=== PATIENT | male | born 1995 | race Hispanic/Latino ===

== ENCOUNTER 2025-01-07 16:07 | Emergency (ER) | payer OTHER, SELFPAY ==
--- OUTSIDE RECORDS SUMMARY | 2025-01-07 16:10 | XMS REPORT | Continuity of Care Document ---
Author Name Unknown Address [address] [place] [address] [address] [place] [address] [facility] Address [address] [place] [address] [address] [place] [address] Care Team Providers Care Category Specialist Name Role Phone Tana Brito M.D. Primary Care Physician Allergies, Adverse Reactions, Alerts Allergy Name Allergy Type Status Severity Reaction(s) Onset Date Inactive Date Treating Clinician Comments Source Tamiflu - Oral Propensi ty to adverse reaction to drug Active 04-30 00:00: 00 Francisco Javier Amy Domínguez Tamiflu Propensi ty to adverse reaction to drug Active 06-20 00:00: 00 Francisco Javier Amy Sang Medications Ordered Medication Name Filled Medication Name Start Date Stop Date Current Medication? Ordering Clinician Indication Dosage Frequency Signature (SIG) Comments Components Source Bromfed DM 2 mg-30 mg-10 mg/5 mL oral syrup 2023-11 0 00:00: 00 Yes 10mg/5 mL Francisco Javier Domínguez Dose Unknown 05-06 00:00: 00 Yes Francisco Javier Amy Sang Flonase Allergy Relief 50 mcg/actuati on nasal spray,suspe nsion 04-30 00:00: 00 Yes 1mcg/ac tuation Francisco Javier Domínguez Dose Unknown 04-30 00:00: 00 Yes Francisco Javier Domínguez Vitamin D2 1,250 mcg (50,000 unit) capsule 2020-11 0-12 00:00: 00 Yes 1(50,00 0 unit) Francisco Javier Reyes Sang Vital Signs Vital Name Observation Time Observation Value Comments S sam Weight Measured 2024-08-10 15:02:00 129.30 pounds Francisco Javier Amy Sang Height Measured 2024-08-10 15:02:00 63.19 inches Francisco Javier Amy Sang Body Temperature 2024-08-10 15:02:00 98.20 degrees Francisco Javier F Sang Heart Rate 2024-08-10 15:02:00 74.00 /min Donna en F Sang Respiratory Rate 2024-08-10 15:02:00 18.00 /min Francisco Javier F Sang BP Systolic 2024-08-10 15:02:00 134 mm[Hg] Step hen F Sang BP Diastolic 2024-08-10 15:02:00 83 mm[Hg] Benito phen F Sang BP Systolic 2023-03-12 14:16:00 139 mm[Hg] Step hen F Sang BP Diastolic 2023-03-12 14:16:00 94 mm[Hg] Benito phen F Sang Weight Measured 2023-03-12 14:16:00 123.60 pounds Francisco Javier F Sang Height Measured 2023-03-12 14:16:00 63.19 inches Francisco Javier F Sang Body Temperature 2023-03-12 14:16:00 99.20 degrees Francisco Javier F Sang Heart Rate 2023-03-12 14:16:00 71.00 /min Donna en F Sang Respiratory Rate 2023-03-12 14:16:00 Francisco Javier F Sang BP Systolic 2022-05-06 08:41:00 Step hen F Sang BP Diastolic 2022-05-06 08:41:00 Benito phen F Sang Weight Measured 2022-05-06 08:41:00 125.00 pounds Francisco Javier F Sang Height Measured 2022-05-06 08:41:00 63.19 inches Francisco Javier F Sang Body Temperature 2022-05-06 08:41:00 Francisco Javier F Sang Heart Rate 2022-05-06 08:41:00 Donna en F Sang Respiratory Rate 2022-05-06 08:41:00 Francisco Javier F Sang BP Systolic 2021-08-16 10:34:00 112 mm[Hg] Step hen F Sang BP Diastolic 2021-08-16 10:34:00 60 mm[Hg] Benito phen F Sang Weight Measured 2021-08-16 10:34:00 125.00 pounds Francisco Javier F Sang Height Measured 2021-08-16 10:34:00 63.19 inches Francisco Javier F Sang Body Temperature 2021-08-16 10:34:00 97.50 degrees Francisco Javier F Sang Heart Rate 2021-08-16 10:34:00 68.00 /min Donna en F Sang Respiratory Rate 2021-08-16 10:34:00 Francisco Javier Amy Domínguez BP Systolic 2021-08-15 16:02:00 103 mm[Hg] Step hen F Sang BP Diastolic 2021-08-15 16:02:00 61 mm[Hg] Ebnito phen F Sang Weight Measured 2021-08-15 16:02:00 125.60 pounds Francisco Javier F Sang Height Measured 2021-08-15 16:02:00 63.19 inches Francisco Javier F Sang Body Temperature 2021-08-15 16:02:00 98.70 degrees Francisco Javier Domínguez Heart Rate 2021-08-15 16:02:00 67.00 /min Donna en F Sang Respiratory Rate 2021-08-15 16:02:00 21.00 /min Francisco Javierdawit Domínguez BP Systolic 2021-06-20 14:35:00 130 mm[Hg] Step hen F Sang BP Diastolic 2021-06-20 14:35:00 82 mm[Hg] Benito phen F Sang Weight Measured 2021-06-20 14:35:00 126.40 pounds Francisco Javier Domínguez Height Measured 2021-06-20 14:35:00 63.19 inches Francisco Javier Domínguez Body Temperature 2021-06-20 14:35:00 98.30 degrees Francisco Javier Domínguez Heart Rate 2021-06-20 14:35:00 76.00 /min Donna en Amy Domínguez Respiratory Rate 2021-06-20 14:35:00 Francisco Javier Domínguez Encounters Start Date/Time End Date/Time Encounter Type Admission Type Attending [facility] Care Department Encounter ID Source 2024-08-11 14:05:10 2024-08-11 14:05:10 Outpatient [facility] [id number] Francisco Javier Domínguez 2024-08-10 15:00:02 2024-08-10 15:00:02 Outpatient [facility] [id number] Francisco Javier Domínguez 2024-08-10 00:00:00 2024-08-10 00:00:00 Outpatient Visit [facility] [id number] Francisco Javier Domínguez 2023-03-12 13:56:23 2023-03-12 13:56:23 Outpatient [facility] [id number] Francisco Javier Domínguez 2023-03-12 00:00:00 2023-03-12 00:00:00 Outpatient Visit [facility] [id number] Francisco Javier Domínguez Results Test Description Test Time Test Comments Results Result Co mments Source Francisco Javier DomínguezHEMOGLOBIN [id number] 00:00:00* Test Item Value Reference Range Interpretation Comme nts HEMOGLOBIN A1c (test code = 84003) 5.3 % Francisco Javier DomínguezLIPID [id number] 00:00:00* Test Item Value Reference Range Interpretation Comme nts CHOLESTEROL (test code = 2210) 157 MG/DL TRIGLYCERIDES (test code = 2232) 149 MG/DL HDL CHOLESTEROL (test code = 2220) 48 MG/DL CALC LDL CHOL (test code = 2237) 84 MG/DL RISK RATIO LDL/HDL (test cod e = 2238) 1.75 RATIO Francisco Javier DomínguezCOMPREHENSIVE METABOLIC [id number] 00:00:00* Test Item Value Reference Range Interpretation Comme nts GLUCOSE (test code = 2217) 106 MG/DL BUN (test code = 2208) 9 MG/DL CREATININE (test code = 2214) 1.03 MG/DL eGFR AMER. (test cod e = 48049) 116 ML/MIN/1.73 eGFR NON- AMER. (test code = 09858) 100 ML/MIN/1.73 CALC BUN/CREAT (test code = 2235) 9 RATIO SODIUM (test code = 2231) 138 MEQ/L POTASSIUM (test code = 2228) 3.9 MEQ/L CHLORIDE (test code = 2215) 100 MEQ/L CARBON DIOXIDE (test code = 2206) 26 MEQ/L CALCIUM (test code = 2209) 8.9 MG/DL PROTEIN, TOTAL (test code = 2229) 7.0 G/DL ALBUMIN (test code = 2201) 4.7 G/DL CALC GLOBULIN (test code = 2240) 2.3 G/DL CALC A/G RATIO (test code = 2234) 2.0 RATIO BILIRUBIN, TOTAL (test code = 2207) 0.2 MG/DL ALKALINE PHOSPHATASE (test code = 2204) 69 U/L AST (test code = 2218) 19 U/L ALT (test code = 2219) 17 U/L Francisco Javier DomínguezHIV AB/AG COMBO RFLX [id number] 00:00:00* Test Item Value Reference Range Interpretation Comme nts HIV 1/2 4TH GEN, RFLX CONF ( test code = 3514) NON-REACTIVE Francisco Javier DomínguezVITAMIN D, 25 [id number] 00:00:00* Test Item Value Reference Range Interpretation Comme nts VITAMIN D, 25 OH (test code = 4958) 15 NG/ML Francisco Javier [id number] 00:00:00* Test Item Value Reference Range Interpretation Comme nts TSH, THIRD GENERATION (test code = 2821) 0.902 UIU/ML Francisco Javier DomínguezCBC W/AUTO [id number] 00:00:00* Test Item Value Reference Range Interpretation Comme nts WBC (test code = 1001) 6.8 K/UL RBC (test code = 1002) 5.47 M/UL HEMOGLOBIN (test code = 1003) 16.5 G/DL HEMATOCRIT (test code = 1004) 48.6 % MCV (test code = 1005) 88.8 fL MCH (test code = 1006) 30.2 PG MCHC (test code = 1007) 34.0 G/DL RDW (test code = 1038) 12.9 % NEUTROPHILS (test code = 1008) 46.1 % LYMPHOCYTES (test code = 1010) 40.6 % MONOCYTES (test code = 1011) 9.7 % EOSINOPHILS (test code = 1012) 2.8 % BASOPHILS (test code = 1013) 0.7 % IMMATURE GRANULOCYTES (test code = 1036) 0.1 % NUCLEATED RBCS (test code = 1065) 0.0 /100WBC'S PLATELET COUNT (test code = 1015) 337 K/UL ABSOLUTE NEUTROPHILS (test c ode = 1066) 3.14 K/UL ABSOLUTE LYMPHOCYTES (test c ode = 1067) 2.77 K/UL ABSOLUTE MONOCYTES (test cod e = 1068) 0.66 K/UL ABSOLUTE EOSINOPHILS (test c ode = 1040) 0.19 K/UL ABSOLUTE BASOPHILS (test cod e = 1069) 0.05 K/UL ABS IMMATURE GRANULOCYTES (t est code = 1020) 0.01 K/UL ABS NUCLEATED RBCS (test cod e = 66438) 0.00 K/UL Francisco Javier DomínguezHEMOGLOBIN [id number] 00:00:00* Test Item Value Reference Range Interpretation Comme nts HEMOGLOBIN A1c (test code = 89098) 5.3 % Francisco Javier DomínguezLIPID [id number] 00:00:00* Test Item Value Reference Range Interpretation Comme nts CHOLESTEROL (test code = 2210) 157 MG/DL TRIGLYCERIDES (test code = 2232) 149 MG/DL HDL CHOLESTEROL (test code = 2220) 48 MG/DL CALC LDL CHOL (test code = 2237) 84 MG/DL RISK RATIO LDL/HDL (test cod e = 2238) 1.75 RATIO Francisco Javier DomínguezCOMPREHENSIVE METABOLIC [id number] 00:00:00* Test Item Value Reference Range Interpretation Comme nts GLUCOSE (test code = 2217) 106 MG/DL BUN (test code = 2208) 9 MG/DL CREATININE (test code = 2214) 1.03 MG/DL eGFR AMER. (test cod e = 63472) 116 ML/MIN/1.73 eGFR NON- AMER. (test code = 73867) 100 ML/MIN/1.73 CALC BUN/CREAT (test code = 2235) 9 RATIO SODIUM (test code = 2231) 138 MEQ/L POTASSIUM (test code = 2228) 3.9 MEQ/L CHLORIDE (test code = 2215) 100 MEQ/L CARBON DIOXIDE (test code = 2206) 26 MEQ/L CALCIUM (test code = 2209) 8.9 MG/DL PROTEIN, TOTAL (test code = 2229) 7.0 G/DL ALBUMIN (test code = 2201) 4.7 G/DL CALC GLOBULIN (test code = 2240) 2.3 G/DL CALC A/G RATIO (test code = 2234) 2.0 RATIO BILIRUBIN, TOTAL (test code = 2207) 0.2 MG/DL ALKALINE PHOSPHATASE (test code = 2204) 69 U/L AST (test code = 2218) 19 U/L ALT (test code = 2219) 17 U/L Francisco Javier DomínguezHIV AB/AG COMBO RFLX [id number] 00:00:00* Test Item Value Reference Range Interpretation Comme nts HIV 1/2 4TH GEN, RFLX CONF ( test code = 3514) NON-REACTIVE Francisco Javier DomínguezVITAMIN D, 25 [id number] 00:00:00* Test Item Value Reference Range Interpretation Comme nts VITAMIN D, 25 OH (test code = 4958) 15 NG/ML Francisco Javier [id number] 00:00:00* Test Item Value Reference Range Interpretation Comme nts TSH, THIRD GENERATION (test code = 2821) 0.902 UIU/ML Francisco Javier Domínguez Notes Date/Time Note Provider Source Francisco Javier Romeo [facility]2023-05-03 00:00:00 Francisco Javier Romeo [facility]
--- NOTE | 2025-01-07 17:00 | RAD REPORT ---
EXAMINATION: CT HEAD WITHOUT CONTRAST CT CERVICAL SPINE WITHOUT CONTRAST CLINICAL INDICATION: Male, 29 years old. TRAUMA TECHNIQUE: Axial CT images from the skull base to the vertex without intravenous contrast. Axial CT i mages through the cervical spine were obtained without intravenous contrast. Sagittal and coronal reformatted images were created from the data set. Coronal and sagittal reformatted images were creat ed from the data set. One or more of the following dose reduction techniques were used: Automated exposure control, adjustment of the mA and/or kV according to patient size, and/or iterative reconstr uction. Unless otherwise specified, incidental findings do not require dedicated imaging follow-up. [id number]. COMPARISON: No prior exam. FINDINGS: Head: INTRACRANIAL: No acute intracranial hemorrhage. No hydrocephalus. No mass effect or midline shift. No significant white matter disease. VASCULATURE: No visualized abnormalities in the arteries or dural venous sinuses. SCALP/SKULL: No calvarial fracture identified. No acute soft tissue abnormality. SINUSES: The visualized paranasal sinuses and mastoid air cells are predominantly clear. No significa nt mastoid fluid. Cervical spine: ALIGNMENT: The cervical spine has normal alignment without scoliosis or spondylolisthesis. BONE: Vertebral body heights are maintained. No aggressive osseous lesions. DEGENERATIVE: No significant focal degenerative changes. SOFT TISSUE: No significant abnormalities in the soft tissue of the neck. The visualized lung apices are clear. IMPRESSION: No acute intracranial abnormality. No acute fracture or traumatic malalignment of the cervical spine.
--- NOTE | 2025-01-07 17:19 | RAD REPORT ---
EXAM: CT CHEST, ABDOMEN AND PELVIS WITHOUT CONTRAST CLINICAL INDICATION: Male, 29 years old TRAUMA TECHNIQUE: CT chest, abdomen and pelvis was performed, without IV contrast, as per department protoco l. Axial, sagittal and coronal reconstructions were obtained. One or more of the following dose reduction techniques were used: Automated exposure control, adjustment of the mA and/or kV according to the patient size, and/or iterative reconstruction. Unless otherwise specified, incidental findings do not require dedicated imaging follow-up. [id number]. COMPARISON: No prior exam. FINDINGS: The lack of intravenous contrast limits the sensitivity of this exam for evaluation of solid visceral organs, vascular structures, and retroperitoneum. THORAX: LOWER NECK AND CHEST WALL: Visualized thyroid gland and soft tissues are normal. LUNGS AND AIRWAYS: Airways are clear. No evidence of airspace or interstitial process.No suspicious a nd/or stable pulmonary nodules. PLEURA: No pleural effusion. No pneumothorax. MEDIASTINUM AND LYMPH NODES: No mediastinal mass or fluid collection. Normal size mediastinal, hilar, and axillary lymph nodes. THORACIC AORTA: No thoracic aortic aneurysm. PULMONARY ARTERIES: Caliber is within normal limits. HEART: Normal heart size. No coronary calcifications.No significant pericardial effusion. ABDOMEN/PELVIS: UPPER GI: No significant abnormality. LIVER: No significant focal abnormality. GALLBLADDER/BILE DUCTS: No biliary ductal dilatation.? PANCREAS: No mass, ductal dilation, or marta-pancreatic fluid. SPLEEN: Unremarkable. ADRENALS: No adrenal masses. KIDNEYS AND URETERS: No hydronephrosis.Limited evaluation for renal lesions in the absence of IV cont rast. ABDOMINAL AORTA AND OTHER VESSELS: Normal caliber aorta and IVC. PERITONEUM: No abnormal free fluid. No free air. LYMPH NODES: No pathologic lymphadenopathy. ABDOMINAL WALL: Unremarkable SMALL BOWEL/COLON: Small bowel has normal course and caliber. No colonic wall thickening or pericolon ic inflammatory changes.Normal appendix. URINARY BLADDER: Underdistended but grossly unremarkable. REPRODUCTIVE ORGANS: No pathologic process. COMBINED: MUSCULOSKELETAL: No acute or suspicious osseous abnormality. Grade 1 anterolisthesis of L5 on S1 with bilateral pars defects. ADDITIONAL FINDINGS: None. IMPRESSION: No evidence of significant trauma to the chest, abdomen, or pelvis.
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
[2025-01-07] MEDS ORDERED: IBUPROFEN 200 MG TAB PO ONE (17:27)
[2025-01-07 17:29] LABS: Specific Gravity 1.028 (1.005-1.030); Sqamous Epithelial None Seen /HPF (None Seen); Urine Bacteria None Seen /HPF (<20); Urine Bilirubin NEGATIVE (Negative); Urine Blood Trace (Negative); Urine Clarity Clear (Clear); Urine Color Yellow (Yellow); Urine Culture Reflex Order NOT NEEDED; Urine Glucose NEGATIVE (Negative); Urine Ketones NEGATIVE (Negative); Urine Microscopic Reflex YN ORDER UMIC; Urine Mucus 2+ /HPF (None Seen); Urine Nitrite NEGATIVE (Negative); Urine Protein TRACE (Negative); Urine RBC <5 /HPF (None Seen); Urine Urobilinogen 1+ (Normal); Urine WBC <5 /HPF (<5); Urine pH 5.5 (5.0-7.0)
[2025-01-07 17:48] VITALS: BP 135/72; TEMP 98.1; O2SAT 98
== END 2025-01-07 17:41 | disposition home or self-care (01) ==
LOC: ER 16:07
DX: R29.91 Unspecified symptoms and signs involving the musculoskeletal system (principal); V49.49XA Driver injured in collision with other motor vehicles in traffic accident, initial encounter; F17.210 Nicotine dependence, cigarettes, uncomplicated
CPT/HCPCS: 70450; 71250; 72125; 74176; 81001; 99283